=== PATIENT | male | born 1950 | race Caucasian/White ===

== ENCOUNTER 2017-02-12 09:14 | Day surgery (SDC) | payer MEDICARE, OTHER ==
--- NOTE | 2017-02-12 09:46 | OR ---
Anesthesia Procedure Note - Anesthesia Procedure Note Date of Service: 02/12/17 Narrative: Vital Signs - Last Taken Temp 36 C L 02/12/17 09:25 Pulse 68 02/12/17 09:25 Resp 16 02/12/17 09:25 BP 126/81 02/12/17 09:25 Pulse Ox 95 02/12/17 09:25 02/12/17 09:44 Anesthesia Pre Procedure Evaluation DATE: 02/12/2017. TIME: 0940. INDICATIONS: Spinal stenosis PAST MEDICAL HISTORY: Is a 67-year-old male with a history of low back pain and radiculopathy that extends down both legs to approximately the level of his knees. He had a epidural steroid injection approximately one year ago with relief of the back discomfort. The bilateral leg pain however has remained. EXAM: MRI report and films were reviewed. Pain is 6/10 on pain scale at present. ASSESSMENT OF MEDICAL STATUS: O.K. to proceed with FLAVIO. PLANNED PROCEDURE: Fluoroscopic guided epidural steroid injection L5-S1.
[2017-02-12] MEDS ORDERED: LIDOCAINE HCL/PF 5 ML VIAL IJ ONE (10:00)
[2017-02-12] MEDS ORDERED: IOPAMIDOL 20 ML VIAL IJ ONE (10:00)
[2017-02-12] MEDS ORDERED: DEXAMETHASONE SOD PHOSPHATE 10 MG/ML VIAL IJ ONE (10:00)
--- NOTE | 2017-02-12 10:19 | OR ---
Anesthesia Procedure Note - Anesthesia Procedure Note Date of Service: 02/12/17 Narrative: Vital Signs - Last Taken Temp 36.3 C L 02/12/17 10:15 Pulse 74 02/12/17 10:15 Resp 16 02/12/17 10:15 BP 126/75 02/12/17 10:15 Pulse Ox 91 02/12/17 10:15 02/12/17 10:17 ANESTHESIA PROCEDURE NOTE Date of Procedure: 02/12/2017. Time of procedure: 0955. Performed by: Medhat Garner CRNA Practice Clinician: None. Preprocedure diagnosis: Spinal stenosis and bilateral leg radiculopathy. Post procedure diagnosis: Same. Procedure: Fluoroscopic guided epidural Steroid Injection L5-S1. Indications: This is a 67-year-old male with a history of low back and bilateral leg pain. Potential risks and benefits of the procedure were discussed with the patient and consent was obtained. Findings: See below. Details of the procedure: The patient was brought back to operating room #3. The patient was then placed in the prone position to comfort. DuraPrep was applied to the patient's back. Patient was then draped in sterile fashion. Lidocaine 1% was infiltrated to the skin and subcutaneous tissues at the level of the L5-S1 interspace using fluoroscopic guidance. The epidural space was identified using a 20-gauge Tuohy needle with [id number] technique. 1 mL of Isovue contrast was then injected after negative aspiration for blood and CSF. The epidural space was outlined in the AP and lateral views. Preservative free Decadron 10 mg + 5 mL of 1% preservative-free lidocaine was administered to the epidural space after negative aspiration for blood and CSF. The Tuohy needle was removed intact. A Band-Aid was applied to the patient's back. The patient was then placed in a supine position for 5 minutes before returning to the ambulatory surgical unit. Total fluoroscopy time: 14.4 seconds. Cumulative dose: 12.95 mGy. EBL: Minimal. Fluids: N/A. Specimen: N/A. Post procedure condition: The patient tolerated the procedure well. No complications were noted. No motor weaknesses or paresthesias were noted upon discharge. Thank you for this consultation. Medhat Garner CRNA
[2017-02-12 11:19] VITALS: BP 101/63
== END 2017-02-12 09:15 | disposition home or self-care (01) ==
LOC: AMB 09:14
PROVIDERS: ATTEND Family Medicine
PROC: 3E0S33Z Introduction of Anti-inflammatory into Epidural Space, Percutaneous Approach (ICD-10-PCS; 2017-02-12)
PROC: 3E0S3BZ Introduction of Anesthetic Agent into Epidural Space, Percutaneous Approach (ICD-10-PCS; principal; 2017-02-12 10:00)
DX: M48.00 Spinal stenosis, site unspecified (principal)